=== PATIENT | male | born 1960 | race Caucasian/White ===

== ENCOUNTER 2016-11-30 09:11 | Emergency (ER) | payer MEDICAID ==
[~2016-11-30] VITALS: Ht 167.6 cm; Wt 82.1 kg
[~2016-11-30 09:11] MED LIST: ASPI-1063 PO; CLOP75TA2 PO; LIP10 PO; LISI10TA5 PO
[2016-11-30 09:17] VITALS: BP_SYST 132
[2016-11-30] MEDS ORDERED: DIPHENHYDRAMINE HCL 50 MG CAPSULE PO ONE (10:30)
[2016-11-30 11:25] VITALS: BP_SYST 128
== END 2016-11-30 11:25 | disposition home or self-care (01) ==
LOC: SED 09:11
DX: H10.13 Acute atopic conjunctivitis, bilateral (principal); I10 Essential (primary) hypertension; E78.00 Pure hypercholesterolemia, unspecified; Z79.82 Long term (current) use of aspirin; Z95.9 Presence of cardiac and vascular implant and graft, unspecified
CPT/HCPCS: 70480; 99284; Q0163

== ENCOUNTER 2017-11-05 17:09 | Emergency (ER) | payer MEDICAID ==
[~2017-11-05] VITALS: Ht 167.6 cm; Wt 79.8 kg
[~2017-11-05 17:09] MED LIST changes: -ASPI-1063 PO; +ASPI-1153 PO
[2017-11-05 17:10] VITALS: BP_SYST 143
--- NOTE | 2017-11-05 17:10 | NUR ---
Pt c/o Right knee pain upon weight bearing and twisting. Pt denies trauma or injury, no deformity noted. Pt states that he took Tylenol and Oxycodone with no relief.
--- NOTE | 2017-11-05 17:10 | NUR ---
BROUGHT BACK TO BED #8 AND TRIAGED. REPORT GIVEN TO RAE
--- NOTE | 2017-11-05 17:25 | NUR ---
Dr. Kapoor at bedside.
[2017-11-05] MEDS ORDERED: traMADol HCL HCL 50 MG TABLET (ULTRAM) PO ONE (17:45)
[2017-11-05 18:15] VITALS: BP_SYST 138
--- NOTE | 2017-11-05 18:15 | NUR ---
Patient given written and verbal discharge instructions and verbalizes understanding. ER MD discussed with patient the results and treatment provided. Patient in stable condition. ID arm band removed. Rx of Motrin given. Patient educated on pain management and to follow up with PMD. Pain Scale 1/10. Opportunity for questions provided and answered. Medication side effect fact sheet provided.
== END 2017-11-05 18:15 | disposition home or self-care (01) ==
LOC: SED 17:09
DX: M25.561 Pain in right knee (principal); E78.00 Pure hypercholesterolemia, unspecified; I10 Essential (primary) hypertension; Z86.79 Personal history of other diseases of the circulatory system; Z95.9 Presence of cardiac and vascular implant and graft, unspecified; Z79.82 Long term (current) use of aspirin; Z79.899 Other long term (current) drug therapy
CPT/HCPCS: 73564; 99284

== ENCOUNTER 2018-09-11 07:59 | Emergency (ER) | payer MEDICAID ==
[~2018-09-11] VITALS: Ht 170.2 cm; Wt 81.6 kg
--- NOTE | 2018-09-11 08:10 | NUR ---
Patient to ER bed 6 to gown for evaluation. Side rails up.
--- NOTE | 2018-09-11 08:10 | NUR ---
Pt c/o L shoulder pain s/p being tackled by friend.Pt h/o stent placement x 3 and anticoagulents.
[2018-09-11 08:12] VITALS: BP_SYST 141
--- NOTE | 2018-09-11 08:15 | NUR ---
ER at bedside examining patient.
--- NOTE | 2018-09-11 08:30 | NUR ---
Patient transported to radiology via ambulated, accompanied by rad staff.
--- NOTE | 2018-09-11 08:35 | NUR ---
Returned from radiology, back to [facility].
[2018-09-11 08:39] LABS: BASOPHILS # (AUTO) 0.1 K/uL (0.0-0.2); BASOPHILS % (AUTO) 1.2 % (0.0-2.0); EOSINOPHILS # (AUTO) 0.2 K/uL (0.0-0.4); EOSINOPHILS % (AUTO) 3.6 % (0.0-4.0); HEMATOCRIT 43.6 % (36-54); HEMOGLOBIN 14.5 g/dL (14.0-18.0); LYMPHOCYTES # (AUTO) 1.1 K/uL (1.0-5.5); LYMPHOCYTES % (AUTO) 20.7 % (20.5-51.5); MEAN CORPUSCULAR HEMOGLOBIN 30 pg (27-31); MEAN CORPUSCULAR HGB CONC 33 % (32-36); MEAN CORPUSCULAR VOLUME 90 fL (79.0-98.0); MONOCYTES # (AUTO) 0.5 K/uL (0.0-1.0); MONOCYTES % (AUTO) 9.7 % (1.7-9.3); NEUTROPHILS # (AUTO) 3.3 K/uL (1.8-7.7); NEUTROPHILS % (AUTO) 64.8 % (40.0-70.0); PLATELET COUNT (AUTO) 137 K/uL (130-430); RED BLOOD CELL COUNT(AUTO) 4.87 MIL/uL (4.2-6.2); RED CELL DISTRIBUTION WIDTH 12.5 % (9.0-15.0); WHITE BLOOD COUNT (AUTO) 5.1 K/uL (4.8-10.8)
[2018-09-11 08:48] LABS: CALCIUM 9.3 mg/dL (8.4-11.0); CREATININE 0.98 mg/dL (0.55-1.30)
[2018-09-11 08:53] LABS: PROTHROMBIN TIME 10.3 SECS (9.5-12.5); TOTAL BILIRUBIN 0.4 mg/dL (0.0-1.0)
--- NOTE | 2018-09-11 09:15 | NUR ---
Sling applied to L arm
[2018-09-11 09:20] VITALS: BP_SYST 141
--- NOTE | 2018-09-11 09:20 | NUR ---
Patient given written and verbal discharge instructions and verbalizes understanding. ER MD discussed with patient the results and treatment provided. Patient in stable condition. ID arm band removed. Rx of norco given. Patient educated on pain management and to follow up with PMD. Pain Scale 0. Opportunity for questions provided and answered. Medication side effect fact sheet provided.
== END 2018-09-11 09:20 | disposition home or self-care (01) ==
LOC: SED 07:59
DX: S40.012A Contusion of left shoulder, initial encounter (principal); E78.00 Pure hypercholesterolemia, unspecified; I10 Essential (primary) hypertension; Z86.79 Personal history of other diseases of the circulatory system; Z79.82 Long term (current) use of aspirin; Z79.899 Other long term (current) drug therapy; W50.0XXA Accidental hit or strike by another person, initial encounter; Y93.63 Activity, rugby; Y92.89 Other specified places as the place of occurrence of the external cause; Y99.8 Other external cause status
CPT/HCPCS: 36415; 73030; 80053; 84484; 85025; 85610-TC; 85730-TC; 93005; 99284

== ENCOUNTER 2018-09-21 09:58 | Emergency (ER) | payer MEDICAID ==
[~2018-09-21] VITALS: Ht 167.6 cm; Wt 80.3 kg
[2018-09-21 10:08] VITALS: BP_SYST 152
[2018-09-21 10:28] VITALS: BP_SYST 152
== END 2018-09-21 10:27 | disposition home or self-care (01) ==
LOC: SED 09:58
DX: R21 Rash and other nonspecific skin eruption (principal); I10 Essential (primary) hypertension; E78.00 Pure hypercholesterolemia, unspecified; Z86.79 Personal history of other diseases of the circulatory system; Z79.82 Long term (current) use of aspirin; Z79.899 Other long term (current) drug therapy
CPT/HCPCS: 99283

== ENCOUNTER 2018-11-12 17:40 | Emergency (ER) | payer MEDICAID ==
[~2018-11-12] VITALS: Ht 167.6 cm; Wt 80.7 kg
[2018-11-12 18:02] VITALS: BP_SYST 157
--- NOTE | 2018-11-12 18:09 | NUR ---
Patient triaged and placed in waiting room. VSS and patient appears in no acute distress at this time. Accompanied by self, awaiting available bed, and MD notified of need for MSE.
--- NOTE | 2018-11-12 19:13 | NUR ---
Patient to ER bed 5 to gown for evaluation. Side rails up. Report given to Louisa CHACON/Rupesh CHACON.
--- NOTE | 2018-11-12 20:11 | NUR ---
Scott hanna in EDM - 11/12/18 at 2012 by [email or web address] MANUEL Perea at bedside examining patient.
--- NOTE | 2018-11-12 20:11 | NUR ---
pt brought self to ed. pt states he has headache, back , and neck pain 10/10 since this morning. pt states he feels that he is stiff and "swollen". Pt denies cp, n/v, sob, diziness, blurred vision. pt denies any other complaint at this time. pt resting comfortably in bed 5. vss, will continue to monitor.
--- NOTE | 2018-11-12 20:11 | NUR ---
ER at bedside examining patient.
[2018-11-12 20:45] VITALS: BP_SYST 148
--- NOTE | 2018-11-12 20:45 | NUR ---
Patient given written and verbal discharge instructions and verbalizes understanding. ER MD discussed with patient the results and treatment provided. Patient in stable condition. ID arm band removed. Rx of keflex given. Patient educated on pain management and to follow up with PMD. Pain Scale 5/10. Opportunity for questions provided and answered. Medication side effect fact sheet provided.
== END 2018-11-12 20:45 | disposition home or self-care (01) ==
LOC: SED 17:40
DX: I88.9 Nonspecific lymphadenitis, unspecified (principal); I10 Essential (primary) hypertension; E78.00 Pure hypercholesterolemia, unspecified; Z79.01 Long term (current) use of anticoagulants; Z79.82 Long term (current) use of aspirin; Z79.899 Other long term (current) drug therapy
CPT/HCPCS: 99283

== ENCOUNTER 2018-11-14 13:39 | Emergency (ER) | payer MEDICAID ==
[~2018-11-14] VITALS: Ht 167.6 cm; Wt 80.3 kg
[2018-11-14 14:04] VITALS: BP_SYST 143
--- NOTE | 2018-11-14 14:08 | NUR ---
Patient triaged and placed in waiting room. VSS and patient appears in no acute distress at this time. Accompanied by SELF, awaiting available bed, and MD notified of need for MSE.
--- NOTE | 2018-11-14 14:21 | NUR ---
Patient to ER bed 08 for evaluation. Side rails up.
--- NOTE | 2018-11-14 14:33 | NUR ---
Note undone in EDM - 11/14/18 at 1758 by [email or web address] Pt AAOx4 ambulated into ED c/o swollen lymph node on R neck, generalized body aches, fever, and shingles x 1 month. Pt wase evaluated in ED x 2 days ago and was given RX abx. No other injuries/complaints per pt/noted. Will continue to monitor. 57 yo male with shingles for one month. Pt with swollen lymph node on his right neck for three days. Pt was seen in the ED two days ago and prescribed Keflex. Pt reports worsening swelling. Pt reports fever, chills, nausea and vomiting. Pt denies chest pain or SOB. Pt with body aches. Pt describes sharp constant 8/10 pain in bilateral shoulders. Pt took Percocet without improvement in pain.
--- NOTE | 2018-11-14 14:42 | NUR ---
ER Dr. Sharma at bedside examining patient.
[2018-11-14] MEDS ORDERED: KETOROLAC TROMETHAMINE 60 MG/2 ML VIAL IM ONE (15:00)
--- NOTE | 2018-11-14 15:07 | NUR ---
Patient given written and verbal discharge instructions and verbalizes understanding. ER MD Sharma discussed with patient the results and treatment provided. Patient in stable condition. ID arm band removed. Rx of Motrin, Prednisone given. Patient educated on pain management and to follow up with PMD. Pain Scale 0. Opportunity for questions provided and answered. Medication side effect fact sheet provided.
[2018-11-14 15:08] VITALS: BP_SYST 138
== END 2018-11-14 15:07 | disposition home or self-care (01) ==
LOC: SED 13:39
DX: R59.0 Localized enlarged lymph nodes (principal); M79.18 Myalgia, other site; I10 Essential (primary) hypertension; Z91.041 Radiographic dye allergy status; Z79.899 Other long term (current) drug therapy
CPT/HCPCS: 96372; 99283; J1885

== ENCOUNTER 2021-08-07 11:12 | Emergency (ER) | payer OTHER, MEDICAID ==
[~2021-08-07] VITALS: Ht 167.6 cm; Wt 81.6 kg
[~2021-08-07 11:12] MED LIST changes: -ASPI-1153 PO; +ASPI-1393 PO; +LISI10TA29 PO; -LISI10TA5 PO
[2021-08-07 11:43] VITALS: BP_SYST 133
[2021-08-07 12:23] LABS: BASOPHILS % (AUTO) 0.7 % (0.0-2.0); EOSINOPHILS # (AUTO) 0.1 K/uL (0.0-0.4); EOSINOPHILS % (AUTO) 2.4 % (0.0-4.0); HEMATOCRIT 43.9 % (36-54); HEMOGLOBIN 15.1 g/dL (14.0-18.0); LYMPHOCYTES # (AUTO) 1.6 K/uL (1.0-5.5); LYMPHOCYTES % (AUTO) 26.9 % (20.5-51.5); MEAN CORPUSCULAR HEMOGLOBIN 30 pg (27-31); MEAN CORPUSCULAR HGB CONC 34 % (32-36); MEAN CORPUSCULAR VOLUME 87 fL (79.0-98.0); MONOCYTES # (AUTO) 0.3 K/uL (0.0-1.0); NEUTROPHILS # (AUTO) 3.9 K/uL (1.8-7.7); PLATELET COUNT (AUTO) 128 K/uL (130-430); RED BLOOD CELL COUNT(AUTO) 5.05 MIL/uL (4.2-6.2); RED CELL DISTRIBUTION WIDTH 12.7 % (9.0-15.0); WHITE BLOOD COUNT (AUTO) 6.1 K/uL (4.8-10.8)
[2021-08-07 12:42] LABS: BILIRUBIN,URINE NEGATIVE (NEGATIVE); BLOOD, URINE NEGATIVE (NEGATIVE); CLARITY/URINE CLEAR (CLEAR); COLOR,URINE YELLOW (YELLOW); GLUCOSE,URINE NEGATIVE (NEGATIVE); KETONES,URINE NEGATIVE (NEGATIVE); LEUKOCYTE ESTERASE ,URINE NEGATIVE (NEGATIVE); NITRITE, URINE NEGATIVE (NEGATIVE); PROTEIN URINE NEGATIVE (NEGATIVE); UROBILINOGEN,URINE 0.2 (0.2-1.0)
[2021-08-07 12:43] LABS: ANION GAP 6 (5-15); CALCIUM 8.8 mg/dL (8.4-11.0); CHLORIDE 101 mmol/L (98-107); CREATININE 1.06 mg/dL (0.55-1.30); GLUCOSE 107 mg/dL (70-99); POTASSIUM 4.2 mmol/L (3.5-5.1); SODIUM SERUM 134 mmol/L (136-145); UREA NITROGEN, BLOOD 14 mg/dL (8-21)
[2021-08-07 12:48] LABS: ALANINE AMINOTRANSFERASE 20 U/L (12-78); ALBUMIN 3.8 g/dL (3.4-4.8); AMYLASE 75 U/L (0-100); ASPARTATE AMINOTRANSFERASE 17 U/L (10-37); LIPASE 200 U/L (73-393); TOTAL BILIRUBIN 0.8 mg/dL (0.0-1.0)
[2021-08-07 12:49] LABS: GFR AFRICAN AMERICAN 92 mL/min (>90)
[2021-08-07 12:50] LABS: C-REACTIVE PROTEIN QUANT < 0.2 mg/dL (0-0.5)
== END 2021-08-07 14:31 | disposition home or self-care (01) ==
LOC: SED 11:12
DX: K43.9 Ventral hernia without obstruction or gangrene (principal); K40.90 Unilateral inguinal hernia, without obstruction or gangrene, not specified as recurrent; I10 Essential (primary) hypertension; Z79.899 Other long term (current) drug therapy; Z91.041 Radiographic dye allergy status
CPT/HCPCS: 36415; 76376; 80053; 81003; 82150; 83605; 83690; 85025; 86140; 99284

== ENCOUNTER 2023-03-02 13:51 | Emergency (ER) | payer OTHER, MEDICAID ==
[~2023-03-02] VITALS: Ht 167.6 cm; Wt 81.2 kg
[2023-03-02 13:51] VITALS: BP_SYST 156; PULSE 125; RESP 18; TEMP 98.3; O2SAT 99
[2023-03-02] MEDS ORDERED: ASPIRIN 81 MG TAB.CHEW PO ONE (14:30)
[2023-03-02 14:54] LABS: BASOPHILS % (AUTO) 0.7 % (0.0-2.0); EOSINOPHILS % (AUTO) 0.9 % (0.0-4.0); HEMATOCRIT 44.2 % (36-54); LYMPHOCYTES # (AUTO) 1.6 K/uL (1.0-5.5); LYMPHOCYTES % (AUTO) 29.8 % (20.5-51.5); MEAN CORPUSCULAR HEMOGLOBIN 30 pg (27-31); MEAN CORPUSCULAR HGB CONC 34 % (32-36); MEAN CORPUSCULAR VOLUME 88 fL (79.0-98.0); MONOCYTES # (AUTO) 0.3 K/uL (0.0-1.0); MONOCYTES % (AUTO) 5.7 % (1.7-9.3); NEUTROPHILS # (AUTO) 3.3 K/uL (1.8-7.7); NEUTROPHILS % (AUTO) 62.9 % (40.0-70.0); PLATELET COUNT (AUTO) 169 K/uL (130-430); RED BLOOD CELL COUNT(AUTO) 5.05 MIL/uL (4.2-6.2); RED CELL DISTRIBUTION WIDTH 12.4 % (9.0-15.0); WHITE BLOOD COUNT (AUTO) 5.2 K/uL (4.8-10.8)
[2023-03-02 14:59] LABS: ANION GAP 8 (5-15); CALCIUM 9.3 mg/dL (8.4-11.0); CARBON DIOXIDE 29 mmol/L (23-29); CHLORIDE 97 mmol/L (98-107); CREATININE 0.95 mg/dL (0.55-1.30); GFR AFRICAN AMERICAN 103 mL/min (>90); GFR NON AFRICAN-AMERICAN 85 mL/min (>90); GLUCOSE 118 mg/dL (74-106); POTASSIUM 4.3 mmol/L (3.5-5.1); SODIUM SERUM 134 mmol/L (136-145); UREA NITROGEN, BLOOD 16 mg/dL (8-21)
[2023-03-02 17:44] VITALS: BP_SYST 156; PULSE 125; RESP 18; TEMP 98.3; O2SAT 99
== END 2023-03-02 17:44 | disposition home or self-care (01) ==
LOC: SED 13:51
DX: R07.9 Chest pain, unspecified (principal); R11.0 Nausea; I10 Essential (primary) hypertension; M79.631 Pain in right forearm; Z91.041 Radiographic dye allergy status; Z79.899 Other long term (current) drug therapy
CPT/HCPCS: 36415; 71045; 80048; 84484; 85025; 93005; 99285